=== PATIENT | male | born 2000 | race Caucasian/White ===

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

== ENCOUNTER 2022-07-20 22:43 | Emergency (ER) | payer OTHER ==
[~2022-07-20] VITALS: Ht 172.7 cm; Wt 68.0 kg
[2022-07-20] MEDS ORDERED: AMOXICILLIN500 M2 PO (23:12)
== END 2022-07-20 23:51 | disposition home or self-care (01) ==
LOC: ED 22:43
DX: K08.89 Other specified disorders of teeth and supporting structures (principal)

== ENCOUNTER 2023-11-30 11:09 | Emergency (ER) | payer OTHER ==
[~2023-11-30] VITALS: Ht 172.7 cm; Wt 59.0 kg
[~2023-11-30 11:09] MED LIST changes: +AMOXICILLIN500 M2 PO
[2023-11-30] MEDS ORDERED: Ketorolac Tromethamine 60 MG/2 ML VIAL IM ONE (11:35)
[2023-11-30] MEDS ORDERED: BENZOCAINE 20% 11.9 GM GEL T STA (11:35)
[2023-11-30] MEDS ORDERED: Lidocaine Hydrochloride 15 ML UDC PO STA (11:35)
[2023-11-30] MEDS ORDERED: PENICILLIN VK500 MG PO (11:36)
[2023-11-30] MEDS ORDERED: Motrin,Rufen800 MG PO (11:36)
== END 2023-11-30 12:14 | disposition home or self-care (01) ==
LOC: ED 11:09
DX: K04.7 Periapical abscess without sinus (principal); Z98.890 Other specified postprocedural states

== ENCOUNTER 2025-01-10 19:27 | Emergency (ER) | payer OTHER ==
[~2025-01-10] VITALS: Ht 172.7 cm; Wt 63.5 kg
[~2025-01-10 19:27] MED LIST changes: +Motrin,Rufen800 MG PO; +PENICILLIN VK500 MG PO
[2025-01-10] MEDS ORDERED: SILVER SULFADIAZINE 25 GM TUBE T ONE (20:00)
[2025-01-10] MEDS ORDERED: Acetaminophen/Hydrocodone 5 MG/325 MG TABLET PO ONE ×2 (20:00→20:40)
[2025-01-10] MEDS ORDERED: TRAMADOL HCL50 MG PO (20:37)
[2025-01-10] MEDS ORDERED: SILVADENE,SSD C50 GM PO (23:40)
[2025-01-10] MEDS ORDERED: MOTRIN 600 MG E4 TAB PO (23:45)
== END 2025-01-10 21:00 | disposition home or self-care (01) ==
LOC: ED 19:27
DX: T23.201A Burn of second degree of right hand, unspecified site, initial encounter (principal); T23.211A Burn of second degree of right thumb (nail), initial encounter; Z96.22 Myringotomy tube(s) status; X12.XXXA Contact with other hot fluids, initial encounter; Y93.89 Activity, other specified; Y92.89 Other specified places as the place of occurrence of the external cause; Y99.8 Other external cause status

== ENCOUNTER → 2025-03-05 | Outpatient (CLI) | payer OTHER ==
[~2025-03-05] MED LIST changes: +MOTRIN 600 MG E4 TAB PO; +SILVADENE,SSD C50 GM PO; +TRAMADOL HCL50 MG PO
[2025-03-05 15:08] LABS: ALKALINE PHOSPHATASE 59 U/L (46-116); BUN 11 mg/dl (9-23); CHLORIDE 102 mmol/L (98-107); CHOLESTEROL 150 mg/dL (<200); LDL CHOLESTEROL 92 mg/dL (9-159); POTASSIUM 3.1 mmol/L (3.4-5.1); SGPT/ALT 11 U/L (5-49); TOTAL PROTEIN 7.3 gm/dL (6.0-8.0); TRIGLYCERIDES 94 mg/dl (<150)
== END | disposition home or self-care (01) ==
LOC: RESCLI 12:44
PROVIDERS: ATTEND Internal Medicine
DX: K40.90 Unilateral inguinal hernia, without obstruction or gangrene, not specified as recurrent (principal); Z98.890 Other specified postprocedural states; Z79.899 Other long term (current) drug therapy